=== PATIENT | female | born 1945 | race Caucasian/White ===

== ENCOUNTER → 2020-08-15 11:10 | Outpatient (BNVA) | payer MEDICARE, OTHER, SELFPAY | PROVIDERS: PCP Internal Medicine; Visit Provider Hospitalist | DX: J44.9 Chronic obstructive pulmonary disease, unspecified (principal); G47.33 Obstructive sleep apnea (adult) (pediatric); Z79.899 Other long term (current) drug therapy; Z99.89 Dependence on other enabling machines and devices; Z23 Encounter for immunization | CPT/HCPCS: 90471; 90732; 99212 ==

== ENCOUNTER → 2021-06-04 10:45 | Outpatient (BNVA) | payer MEDICARE, OTHER, SELFPAY | PROVIDERS: PCP Internal Medicine; Visit Provider Hospitalist | DX: J44.9 Chronic obstructive pulmonary disease, unspecified (principal); G47.33 Obstructive sleep apnea (adult) (pediatric); Z99.89 Dependence on other enabling machines and devices | CPT/HCPCS: 99212 ==

== ENCOUNTER → 2021-11-25 10:09 | Outpatient (BNVA) | payer MEDICARE, OTHER, SELFPAY | PROVIDERS: PCP Internal Medicine; Visit Provider Hospitalist | DX: Z01.811 Encounter for preprocedural respiratory examination (principal); J44.9 Chronic obstructive pulmonary disease, unspecified; G47.33 Obstructive sleep apnea (adult) (pediatric); Z79.899 Other long term (current) drug therapy; Z99.89 Dependence on other enabling machines and devices | CPT/HCPCS: 99212 ==

== ENCOUNTER → 2022-03-03 09:55 | Outpatient (BNVA) | payer MEDICARE, OTHER, SELFPAY | PROVIDERS: PCP Internal Medicine; Visit Provider Hospitalist | DX: J44.9 Chronic obstructive pulmonary disease, unspecified (principal); G47.33 Obstructive sleep apnea (adult) (pediatric); Z79.899 Other long term (current) drug therapy; Z99.89 Dependence on other enabling machines and devices | CPT/HCPCS: 99212 ==

== ENCOUNTER → 2022-09-02 09:46 | Outpatient (BNVA) | payer MEDICARE, OTHER, SELFPAY | PROVIDERS: PCP Internal Medicine; Visit Provider Hospitalist | DX: J44.9 Chronic obstructive pulmonary disease, unspecified (principal); G47.33 Obstructive sleep apnea (adult) (pediatric); Z79.899 Other long term (current) drug therapy; Z99.89 Dependence on other enabling machines and devices | CPT/HCPCS: 99212 ==

== ENCOUNTER 2023-04-29 12:48 | Outpatient (AMB) | payer MEDICARE, OTHER, SELFPAY ==
[2023-04-29 13:00] VITALS: BP 126/60; PULSE 50; O2SAT 99; BMI 18.3
--- NOTE | 2023-04-29 13:00 | MHC.OFFVIS ---
Intake Vital Signs 04/29/23 13:00 Height 5 ft 1 in Weight 97 lb BMI 18.3 BP 126/60 Blood Pressure Location Lt brachial Position Sitting Pulse 50 Pulse Source Pulse Oximeter Pulse Oximetry (%) 99 Oxygen Delivery Method Room Air Intake Visit Reasons: COPD [place]mer Bottom Maker Required: No Allergies celecoxib [From Celebrex] Allergy (Severe, Verified 04/29/23 13:03) Closed Throat Ativan Allergy (Severe, Uncoded 04/29/23 13:03) closed throat Bactrim Allergy (Severe, Uncoded 04/29/23 13:03) closed throat HCTZ Allergy (Severe, Uncoded 04/29/23 13:03) closed throat meloxicam Allergy (Severe, Uncoded 04/29/23 13:03) closed throat percodan Allergy (Severe, Uncoded 04/29/23 13:03) closed throat HPI HPI Comments History of Present Illness Details The patient is a 77-year-old woman with known history of obstructive sleep apnea. She does use the Isabelle view mask. She has been tolerating it very well. She has been using his CPAP more than 4 hours a night. The CPAP therapy has been effective in beneficial. In regards her respiratory status she continues to use her respiratory inhalers including Anoro. She also has a rescue inhaler that she still uses prior to exercise and as needed. She has not required any prednisone or any antibiotics at this time for any exacerbations of her breathing. She does have a history of pulmonary nodules. They had been followed till 2013 with the nodules were deemed stable. We personally reviewed the CT scan from 2013. 11/25/2021 the patient is here for a pulmonary follow-up visit. Since we last spoke the patient did get a new CPAP from her [employer] company, [employer]. I did not order this machine with the patient has been using it. She has had a hard time with it. His set up at CPAP at 10 cm. She did bring in the machine were able to downloaded. Her AHI is elevated while on it with a HF 12.5 events per hour. In addition to that she was only able to use it less than 2 hours because is been difficult to tolerate in comparison to her older machine. Therefore we did adjust the machine back to an APAP 8-14 cm and I did remove the comfort setting to exhale which was causing her to not synchronized with the PAP therapy. She was able to tolerated better at the end of the adjustments. However if she has any issues she can always call us and we can we evaluate and we adjusted accordingly. Right now she is doing well from a respiratory status in case she continues in the Anoro. Her last chest x-ray was back in May 2021 demonstrating just hyperinflation. She is scheduled to undergo a cataract surgery. At this point the patient is medically optimized and is able to undergo her surgery with anesthesia without any significant pulmonary risk. 09/02/2022 the patient is here for a pulmonary follow-up visit. Overall the patient is doing well. She did bring her CPAP machine in. Her AHI is better but is still in the upper 4s. Her mean pressure is still around 11-12 cm. Therefore I will go ahead and increase her minimum pressure further. We did tried in the flight communications officer she did tolerated. If she has any difficulties with that she can always call so we can have the DME company be adjusted. It seems like it is a good machine is working well for her. The mask is also good fit for her. From a respiratory status the patient is doing well. She continues use the Anoro. has not required her rescue inhaler. She was also have a chest x-ray but she did not have it. Her last x-ray was from May 2021 demonstrating hyperinflated lungs. Therefore I did remind her just to get an x-ray whenever she has the opportunity to do so. 04/29/2023 the patient is here for pulmonary follow-up visit. Overall the patient has been doing well. She continues to the Anoro inhaler without any significant issues. She has a rescue inhaler that she has not required. The patient has not had any recent exacerbations requiring prednisone either. Overall she has been doing well. Her last chest x-ray from 2020 demonstrate hyperinflation. She was postop a chest x-ray but she has not done as of yet. I did give her scripts that she can get 1 done soon elsewhere. In the meantime she does continue to use her CPAP. CPAP therapy continues to be affecting beneficial. She does use it for more than 4 hours a night. Although she has been having hard time at times which she wakes up in the office. Therefore I adjusted her pressure is to not go over 13 cm. Hopefully she will tolerate that in her AHI will stay below 5. Right now her AHI is close to 5.1. Also increased her minimum pressure in order to try to also improve her apneas at the lower pressures. [facility] Medical History (Updated 11/25/21 @ 12:52 by Aj Noland MD) COPD (chronic obstructive pulmonary disease) ED on CPAP Pre-op chest exam Social History (Updated 06/04/21 @ 11:11 by DASHA Villarreal) Patient Tobacco Use Status: Never used Tobacco Review of Systems Const Denies headache(s) and Denies night sweats ENT Denies headache(s), Reports hearing loss, Denies lip swelling, Denies sinus pressure and Denies tongue swelling Card Denies chest pain and Reports dyspnea on exertion Resp Reports cough and Reports dyspnea on exertion GI Denies abdominal pain Musc Denies no additional complaints Neuro Denies headache(s) Psych Denies no additional complaints and Reports anxiety Louis/Lymph Denies easy bleeding and Denies lymphadenopathy Aller/Immun Denies lip swelling and Denies tongue swelling Physical Exam Vital Signs: Last Vital Signs Pulse 50 04/29/23 13:00 BP 126/60 04/29/23 13:00 Pulse Ox 99 04/29/23 13:00 Oxygen Delivery Method Room Air 04/29/23 13:00 BMI result Body Mass Index 18.3 Const General: alert Eyes Pupils: Equal, round and reactive pupils present Neck Neck: Yes normal visual inspection, Yes full ROM and Yes no lymphadenopathy Chest Chest palpation & inspection: normal inspection of the chest Resp Auscultation: diminished lung sounds Cardio Rate: regular rate Rhythm: regular rhythm Heart sounds: S1 normal heart sound present and S2 normal heart sound present GI Palpation (GI): Soft to palpation and nontender Auscultation: normal bowel sounds General: Yes no CVA tenderness Back/Spine/Pelvis Back: no CVA tenderness Skin General skin exam: rashes and/or lesions noted Neuro Cranial nerves: Yes Equal, round and reactive pupils present Assessment & Plan Assessment & Plan (1) COPD (chronic obstructive pulmonary disease): Code(s): J44.9 - Chronic obstructive pulmonary disease, unspecified (2) ED on CPAP: Code(s): G47.33 - Obstructive sleep apnea (adult) (pediatric); Z99.89 - Dependence on other enabling machines and devices Plan: Change to CPAP. the patient will monitor for any worsening symptoms continue Anoro chest x-ray follow-up 6-8 months Plan Adjusted odilia APAP from 8-16 to 9-13 (NICKO) Mask F30 Continue Anoro Short-acting beta agonist as needed CXR F/U 8-12 months Orders: Orders XR chest 2V 04/29/23 J44.9 - Chronic obstructive pulmonary disease, unspecified Coding Level of Care Code Est Pt Level 4 (65702) Diagnoses COPD (chronic obstructive pulmonary disease) J44.9 ED on CPAP G47.33; Z99.89 Time Spent (min) 19
== END 2023-04-29 13:31 | disposition home or self-care (01) ==
PROVIDERS: PCP Internal Medicine; Visit Provider Hospitalist
DX: J44.9 Chronic obstructive pulmonary disease, unspecified (principal); G47.33 Obstructive sleep apnea (adult) (pediatric); Z99.89 Dependence on other enabling machines and devices
CPT/HCPCS: 99214

== ENCOUNTER → 2023-04-29 12:48 | Outpatient (BNVA) | payer MEDICARE, OTHER, SELFPAY | PROVIDERS: PCP Internal Medicine; Visit Provider Hospitalist | DX: J44.9 Chronic obstructive pulmonary disease, unspecified (principal); G47.33 Obstructive sleep apnea (adult) (pediatric); Z99.89 Dependence on other enabling machines and devices | CPT/HCPCS: 99212 ==

== ENCOUNTER 2023-12-31 10:48 | Outpatient (REF) | payer MEDICARE, OTHER, SELFPAY ==
--- NOTE | ~2023-12-31 | XR_ITS ---
EXAMINATION: XR CHEST CLINICAL INFORMATION: Chest pain. COMPARISON: None available. TECHNIQUE: 2 views of the chest were obtained. FINDINGS: The lungs are well-inflated. There is no gross pneumothorax. Heart size is normal. No pleural effusion. Moderate degenerative changes in the thoracic spine. Prominent diffuse bilateral linear central interstitial opacities of indeterminate chronicity. An 8 mm focal opacity overlying the heart may represent a pulmonary nodule, but could also represent prominent anterior lower left rib. XR/XR chest 2V IMPRESSION: 1. Prominent diffuse bilateral linear central interstitial opacities of indeterminate chronicity. 2. An 8 mm focal opacity overlying the heart may represent a pulmonary nodule, but could also represent prominent anterior lower left rib. Direct correlation with prior images is recommended and if prior images are provided, an addendum will be dictated. In the absence of prior images, CT scan should be considered for further evaluation.
--- NOTE | 2023-12-31 11:56 | ECG_ITS ---
Test Reason : copd Blood Pressure : / mmHG Vent. Rate : 054 BPM Atrial Rate : 054 BPM P-R Int : 150 ms QRS Dur : 074 ms QT Int : 442 ms P-R-T Axes : 055 002 041 degrees QTc Int : 419 ms Sinus bradycardia Otherwise normal ECG When compared with ECG of 14-JUL-2002 06:32, No significant change was found Referred By: Aj Noland Electronically Signed By:PREMA LAUGHLIN MD
== END 2023-12-31 10:49 | disposition home or self-care (01) ==
LOC: HO.XRAY 10:48
PROVIDERS: PCP Internal Medicine; Visit Provider Hospitalist
DX: J41.0 Simple chronic bronchitis (principal); R07.9 Chest pain, unspecified; G47.33 Obstructive sleep apnea (adult) (pediatric); Z99.89 Dependence on other enabling machines and devices
CPT/HCPCS: 71046; 93005; 99212

== ENCOUNTER 2023-12-31 10:48 | Outpatient (AMB) | payer MEDICARE, OTHER, SELFPAY ==
[2023-12-31 11:10] VITALS: PULSE 65; O2SAT 97; BMI 19.3
--- NOTE | 2023-12-31 11:10 | A.OFFVIS_ITS ---
Intake Vital Signs 12/31/23 11:10 Height 5 ft 1 in Weight 102 lb BMI 19.3 Pulse 65 Pulse Source Pulse Oximeter Pulse Oximetry (%) 97 Oxygen Delivery Method Room Air Intake Visit Reasons: COPD Cheese Packer Required: No Allergies celecoxib [From Celebrex] Allergy (Severe, Verified 12/31/23 11:11) Closed Throat Ativan Allergy (Severe, Uncoded 12/31/23 11:11) closed throat Bactrim Allergy (Severe, Uncoded 12/31/23 11:11) closed throat HCTZ Allergy (Severe, Uncoded 12/31/23 11:11) closed throat meloxicam Allergy (Severe, Uncoded 12/31/23 11:11) closed throat percodan Allergy (Severe, Uncoded 12/31/23 11:11) closed throat HPI HPI Comments History of Present Illness Details The patient is a 78-year-old woman with known history of obstructive sleep apnea. She does use the Isabelle view mask. She has been tolerating it very well. She has been using his CPAP more than 4 hours a night. The CPAP therapy has been effective in beneficial. In regards her respiratory status she continues to use her respiratory inhalers including Anoro. She also has a rescue inhaler that she still uses prior to exercise and as needed. She has not required any prednisone or any antibiotics at this time for any exacerbations of her breathing. She does have a history of pulmonary nodules. They had been followed till 2013 with the nodules were deemed stable. We personally reviewed the CT scan from 2013. 11/25/2021 the patient is here for a pulmonary follow-up visit. Since we last spoke the patient did get a new CPAP from her [employer] company, [employer]. I did not order this machine with the patient has been using it. She has had a hard time with it. His set up at CPAP at 10 cm. She did bring in the machine were able to downloaded. Her AHI is elevated while on it with a HF 12.5 events per hour. In addition to that she was only able to use it less than 2 hours because is been difficult to tolerate in comparison to her older machine. Therefore we did adjust the machine back to an APAP 8-14 cm and I did remove the comfort setting to exhale which was causing her to not synchronized with the PAP therapy. She was able to tolerated better at the end of the adjustments. However if she has any issues she can always call us and we can we evaluate and we adjusted accordingly. Right now she is doing well from a respiratory status in case she continues in the Anoro. Her last chest x-ray was back in May 2021 demonstrating just hyperinflation. She is scheduled to undergo a cataract surgery. At this point the patient is medically optimized and is able to undergo her surgery with anesthesia without any significant pulmonary risk. 09/02/2022 the patient is here for a pulmonary follow-up visit. Overall the patient is doing well. She did bring her CPAP machine in. Her AHI is better but is still in the upper 4s. Her mean pressure is still around 11-12 cm. Therefore I will go ahead and increase her minimum pressure further. We did tried in the medical office worker she did tolerated. If she has any difficulties with that she can always call so we can have the DME company be adjusted. It seems like it is a good machine is working well for her. The mask is also good fit for her. From a respiratory status the patient is doing well. She continues use the Anoro. has not required her rescue inhaler. She was also have a chest x-ray but she did not have it. Her last x-ray was from May 2021 demonstrating hyperinflated lungs. Therefore I did remind her just to get an x-ray whenever she has the opportunity to do so. 04/29/2023 the patient is here for pulmonary follow-up visit. Overall the patient has been doing well. She continues to the Anoro inhaler without any significant issues. She has a rescue inhaler that she has not required. The patient has not had any recent exacerbations requiring prednisone either. Overall she has been doing well. Her last chest x-ray from 2020 demonstrate hyperinflation. She was postop a chest x-ray but she has not done as of yet. I did give her scripts that she can get 1 done soon elsewhere. In the meantime she does continue to use her CPAP. CPAP therapy continues to be affecting beneficial. She does use it for more than 4 hours a night. Although she has been having hard time at times which she wakes up in the office. Therefore I adjusted her pressure is to not go over 13 cm. Hopefully she will tolerate that in her AHI will stay below 5. Right now her AHI is close to 5.1. Also increas ed her minimum pressure in order to try to also improve her apneas at the lower pressures. 12/31/2023 the patient is here for a pulmonary follow-up visit. Overall she has been doing okay from a respiratory status. Denies any shortness of breath or any significant cough. She has had to use her rescue inhaler a few times prior to walking primarily because of the cold air. She does take the Anoro daily. The patient has been describing some left-sided chest discomfort. At times is not necessarily associated with activity. Sometimes she reproducible sometimes is not. She has not had an EKG stress test. Will go ahead and request an EKG today. The patient should also have a chest x-ray. Her last chest x-ray was last year and did not have any acute disease. But based on the new symptoms we should readdress it. In addition to that if her EKG and chest x-ray are okay she should undergo a stress test. The patient also brought a CPAP. The CPAP therapy continues to be affecting beneficial. She does try to use it more than 4 hours a night. Unfortunately sometimes she takes it off not knowingly. Her average usage is around 5.9 hours which I did tolerance fine. Although her AHI continues be elevated close to 15. Therefore, I did switch her from CPAP to APAP 10-15. She has a ramp of 8. She will try that and return in 6 months we can re-evaluate her response to therapy. She also has been complaining of some epigastric discomfort. This has been on and off. She did see the GI doctor for. [place] to have some gastritis. [facility] Medical History (Updated 01/02/24 @ 22:35 by Aj Noland MD) Pre-op chest exam ED on CPAP COPD (chronic obstructive pulmonary disease) Social History (Updated 06/04/21 @ 11:11 by DASHA Villarreal) Patient Tobacco Use Status: Never used Tobacco Review of Systems Const Denies headache(s) and Denies night sweats ENT Denies headache(s), Reports hearing loss, Denies lip swelling, Denies sinus pre ssure and Denies tongue swelling Card Denies chest pain and Reports dyspnea on exertion Resp Reports cough and Reports dyspnea on exertion GI Denies abdominal pain Musc Denies no additional complaints Neuro Denies headache(s) Psych Denies no additional complaints Louis/Lymph Denies easy bleeding and Denies lymphadenopathy Aller/Immun Denies lip swelling and Denies tongue swelling Physical Exam Vital Signs: Last Vital Signs Pulse 65 12/31/23 11:10 Pulse Ox 97 12/31/23 11:10 Oxygen Delivery Method Room Air 12/31/23 11:10 BMI result Body Mass Index 19.3 Const General: alert Eyes Pupils: Equal, round and reactive pupils present Neck Neck: Yes normal visual inspection, Yes full ROM and Yes no lymphadenopathy Chest Chest palpation & inspection: normal inspection of the chest Resp Auscultation: diminished lung sounds Cardio Rate: regular rate Rhythm: regular rhythm Heart sounds: S1 normal heart sound present and S2 normal heart sound present GI Palpation (GI): Soft to palpation and nontender Auscultation: normal bowel sounds General: Yes no CVA tenderness Back/Spine/Pelvis Back: no CVA tenderness Skin General skin exam: rashes and/or lesions noted Neuro Cranial nerves: Yes Equal, round and reactive pupils present Assessment & Plan Assessment & Plan (1) COPD (chronic obstructive pulmonary disease): Code(s): J44.9 - Chronic obstructive pulmonary disease, unspecified Qualifiers: COPD type: chronic bronchitis Chronic bronchitis type: simple Qualified Code(s): J41.0 - Simple chronic bronchitis (2) ED on CPAP: Code(s): G47.33 - Obstructive sleep apnea (adult) (pediatric); Z99.89 - Dependence on other enabling machines and devices Plan: Change to CPAP. the patient will monitor for any worsening symptoms continue Anoro chest x-ray follow-up 6-8 months (3) Chest pain: Code(s): R07.9 - Chest pain, unspecified Qualifiers: Chest pain type: unspecified Qualified Code(s): R07.9 - Chest pain, unspecified Plan Adjusted ibreeze APAP from 8-16 to 9-15 (JL) Mask F30 Continue Anoro Short-acting beta agonist as needed CXR today EKG Stress ECHO start Pepcid F/U 4-6 months Orders: Orders XR chest 2V 12/31/23 R07.9 - Chest pain, unspecified ECG 12 lead EKG 12/31/23 J44.9 - Chronic obstructive pulmonary disease, unspecified, R07.9 - Chest pain, unspecified CA echo stress exercise Today Medications: New famotidine (Pepcid) 40 mg PO BEDTIME 30 days 30 tabs 3RF Coding Level of Care Code Tele Est Pt Level 4 (71666) Diagnoses Simple chronic bronchitis J41.0 COPD type: chronic bronchitis Chronic bronchitis type: simple ED on CPAP G47.33; Z99.89 Chest pain, unspecified type R07.9 Chest pain type: unspecified Time Spent (min) 18
== END 2023-12-31 11:42 | disposition home or self-care (01) ==
PROVIDERS: PCP Internal Medicine; Visit Provider Hospitalist
DX: J41.0 Simple chronic bronchitis (principal); G47.33 Obstructive sleep apnea (adult) (pediatric); Z99.89 Dependence on other enabling machines and devices; R07.9 Chest pain, unspecified
CPT/HCPCS: 99214

== ENCOUNTER → 2023-12-31 11:56 | Outpatient (BNV) | payer MEDICARE, OTHER, SELFPAY | PROVIDERS: PCP Internal Medicine; Visit Provider Internal Medicine Cardiovascular Disease | DX: R00.1 Bradycardia, unspecified (principal) | CPT/HCPCS: 93010 ==

== ENCOUNTER → 2024-01-13 10:27 | Outpatient (REF) | payer MEDICARE, OTHER, SELFPAY ==
--- NOTE | 2024-01-13 10:31 | CA_ITS ---
Acquisition Time: 2024-01-13 10:33:09 Total Exercise Time: 00:07:39 Test Indications: CP Medications: SEE H Protocol: ELICEO Max HR: 106 BPM 75% of Pred: 140 BPM Max BP: 142/074 mmHG Max Work Load: 6.9 METS Exercise stres test exercise 7 min 39 sec of Eliceo protocol (manual increases) achieving 67-70% MPHR, with mild SOB, no chest discomfort, with isolated PACs and PVCs short atrial runs, with normotensive response to exercise, with slow heart response, without EKG changes for ischemia. Echo images obtained by tech at rest and immediately post peak exercise. Definity contrast used. Test reviewed with Dr. Marcial. Referred By: Aj Noland Overread By: Melinda Vargas
== END ==
LOC: HO.CARD 10:27
PROVIDERS: PCP Internal Medicine; Visit Provider Hospitalist
DX: R07.9 Chest pain, unspecified (principal)
CPT/HCPCS: 93350; Q9957

== ENCOUNTER → 2024-01-13 10:31 | Outpatient (BNV) | payer MEDICARE, OTHER, SELFPAY | PROVIDERS: PCP Internal Medicine; Visit Provider Nurse Practitioner | DX: R06.02 Shortness of breath (principal); I49.1 Atrial premature depolarization; I49.3 Ventricular premature depolarization; R07.9 Chest pain, unspecified | CPT/HCPCS: 93016; 93018; 93350; 93352 ==

== ENCOUNTER 2024-02-25 14:23 | Outpatient (REF) | payer MEDICARE, OTHER, SELFPAY ==
--- NOTE | ~2024-02-25 | CT_ITS ---
EXAMINATION: CT CHEST WITHOUT CONTRAST CLINICAL INFORMATION: Abnormal chest radiograph. COMPARISON: Chest radiograph 12/31/2023: An 8 mm focal opacity overlying the heart may represent a pulmonary nodule, but could also represent prominent anterior lower left rib. TECHNIQUE: Multidetector volumetric CT imaging of the chest was done. Axial MIP volume rendering provided. Sagittal and coronal reformatted images were obtained. This CT examination was performed using dose optimization techniques as appropriate, variously including the following: *Automated exposure control *Adjustment of mA and/or kV according to patient size (this includes techniques or standardized protocols for targeted exams where dose is matched to indication/reason for exam; i.e. extremities or head) *Use of iterative reconstruction technique DLP: 73 mGy-cm FINDINGS: LUNGS: There is biapical pleural-parenchymal scarring present. Tree-in-bud opacities are seen in the right upper lobe (5:154-199). Multiple scattered pulmonary nodules are present throughout the lungs and tanner images of all have been saved. The largest is in 5 mm subpleural right lower lobe nodule (5:231). Atelectasis and traction bronchiectasis are present in both the right middle lobe and lingula. MEDIASTINUM: The mediastinum is normal. CORONARY ARTERY CALCIFICATION: None visualized on this study. PLEURA: There is no pleural effusion. No pleural mass or thickening. AXILLA: No lymphadenopathy. UPPER ABDOMEN: Unremarkable. OSSEOUS STRUCTURES: Mild degenerative changes are present in the spine. CT/CT chest wo IV con IMPRESSION: 1. Multiple pulmonary nodules are present, the largest measuring 5 mm. 2. Tree-in-bud opacities in the right upper lobe. 3. Atelectasis and traction bronchiectasis in the right middle lobe and lingula. Fleischner guidelines were followed.
== END 2024-02-25 14:24 | disposition home or self-care (01) ==
LOC: HO.CT 14:23
PROVIDERS: PCP Internal Medicine; Visit Provider Hospitalist
DX: R93.89 Abnormal findings on diagnostic imaging of other specified body structures (principal)
CPT/HCPCS: 71250

== ENCOUNTER 2024-06-27 09:45 | Outpatient (AMB) | payer MEDICARE, OTHER, SELFPAY ==
[2024-06-27 09:53] VITALS: BP 110/60; PULSE 78; O2SAT 97; BMI 19.8
--- NOTE | 2024-06-27 09:53 | MHC.OFFVIS ---
Vital Signs 06/27/24 09:53 Height 5 ft 1 in Weight 104 lb 11.513 oz BMI 19.8 BP 110/60 Blood Pressure Location Lt brachial Position Sitting Pulse 78 Pulse Source Pulse Oximeter Pulse Oximetry (%) 97 Oxygen Delivery Method Room Air Intake Visit Reasons: COPD Stave Log Cut Off Saw Operator Required: No Allergies celecoxib [From Celebrex] Allergy (Severe, Verified 06/27/24 09:56) Closed Throat Ativan Allergy (Severe, Uncoded 06/27/24 09:56) closed throat Bactrim Allergy (Severe, Uncoded 06/27/24 09:56) closed throat HCTZ Allergy (Severe, Uncoded 06/27/24 09:56) closed throat meloxicam Allergy (Severe, Uncoded 06/27/24 09:56) closed throat percodan Allergy (Severe, Uncoded 06/27/24 09:56) closed throat HPI Comments Details: The patient is a 78-year-old woman with known history of obstructive sleep apnea. She does use the Isabelle view mask. She has been tolerating it very well. She has been using his CPAP more than 4 hours a night. The CPAP therapy has been effective in beneficial. In regards her respiratory status she continues to use her respiratory inhalers including Anoro. She also has a rescue inhaler that she still uses prior to exercise and as needed. She has not required any prednisone or any antibiotics at this time for any exacerbations of her breathing. She does have a history of pulmonary nodules. They had been followed till 2013 with the nodules were deemed stable. We personally reviewed the CT scan from 2013. 11/25/2021 the patient is here for a pulmonary follow-up visit. Since we last spoke the patient did get a new CPAP from her [employer] company, [employer]. I did not order this machine with the patient has been using it. She has had a hard time with it. His set up at CPAP at 10 cm. She did bring in the machine were able to downloaded. Her AHI is elevated while on it with a HF 12.5 events per hour. In addition to that she was only able to use it less than 2 hours because is been difficult to tolerate in comparison to her older machine. Therefore we did adjust the machine back to an APAP 8-14 cm and I did remove the comfort setting to exhale which was causing her to not synchronized with the PAP therapy. She was able to tolerated better at the end of the adjustments. However if she has any issues she can always call us and we can we evaluate and we adjusted accordingly. Right now she is doing well from a respiratory status in case she continues in the Anoro. Her last chest x-ray was back in May 2021 demonstrating just hyperinflation. She is scheduled to undergo a cataract surgery. At this point the patient is medically optimized and is able to undergo her surgery with anesthesia without any significant pulmonary risk. 09/02/2022 the patient is here for a pulmonary follow-up visit. Overall the patient is doing well. She did bring her CPAP machine in. Her AHI is better but is still in the upper 4s. Her mean pressure is still around 11-12 cm. Therefore I will go ahead and increase her minimum pressure further. We did tried in the strike warfare/missile systems officer she did tolerated. If she has any difficulties with that she can always call so we can have the DME company be adjusted. It seems like it is a good machine is working well for her. The mask is also good fit for her. From a respiratory status the patient is doing well. She continues use the Anoro. has not required her rescue inhaler. She was also have a chest x-ray but she did not have it. Her last x-ray was from May 2021 demonstrating hyperinflated lungs. Therefore I did remind her just to get an x-ray whenever she has the opportunity to do so. 04/29/2023 the patient is here for pulmonary follow-up visit. Overall the patient has been doing well. She continues to the Anoro inhaler without any significant issues. She has a rescue inhaler that she has not required. The patient has not had any recent exacerbations requiring prednisone either. Overall she has been doing well. Her last chest x-ray from 2020 demonstrate hyperinflation. She was postop a chest x-ray but she has not done as of yet. I did give her scripts that she can get 1 done soon elsewhere. In the meantime she does continue to use her CPAP. CPAP therapy continues to be affecting beneficial. She does use it for more than 4 hours a night. Although she has been having hard time at times which she wakes up in the office. Therefore I adjusted her pressure is to not go over 13 cm. Hopefully she will tolerate that in her AHI will stay below 5. Right now her AHI is close to 5.1. Also increased her minimum pressure in order to try to also improve her apneas at the lower pressures. 12/31/2023 the patient is here for a pulmonary follow-up visit. Overall she has been doing okay from a respiratory status. Denies any shortness of breath or any significant cough. She has had to use her rescue inhaler a few times prior to walking primarily because of the cold air. She does take the Anoro daily. The patient has been describing some left-sided chest discomfort. At times is not necessarily associated with activity. Sometimes she reproducible sometimes is not. She has not had an EKG stress test. Will go ahead and request an EKG today. The patient should also have a chest x-ray. Her last chest x-ray was last year and did not have any acute disease. But based on the new symptoms we should readdress it. In addition to that if her EKG and chest x-ray are okay she should undergo a stress test. The patient also brought a CPAP. The CPAP therapy continues to be affecting beneficial. She does try to use it more than 4 hours a night. Unfortunately sometimes she takes it off not knowingly. Her average usage is around 5.9 hours which I did tolerance fine. Although her AHI continues be elevated close to 15. Therefore, I did switch her from CPAP to APAP 10-15. She has a ramp of 8. She will try that and return in 6 months we can re-evaluate her response to therapy. She also has been complaining of some epigastric discomfort. This has been on and off. She did see the GI doctor for. Avella to have some gastritis. 06/27/2024 the patient is here for a pulmonary follow-up visit. Overall the patient has been doing well. She was recently diagnosed with vitiligo she did not realize what vitiligo was not recently. She did see a rail car repairman. She is currently has ointments. Right now she is not taking any medications that can precipitate vitiligo from a pulmonary standpoint. The patient has been using her Anoro. That has been affecting beneficial. She does not need any additional respiratory therapies. She also continues to use her CPAP. Her AHI continues to be elevated. Although is better although she was at 15 before now is came down to around 7. I did increase her maximum pressure little bit. She does have a hard time with the CPAP at times. But she does tolerated well. In addition to that she had a CT scan of the chest back in 02/14/2024 which I personally reviewed demonstrating some tree-in-bud and pulmonary nodules. She will need a repeat CT scan in January of 2025. Will follow-up with her after that. Also to note she did have a cardiac stress echo which is reassuring. [facility] Medical History (Updated 01/02/24 @ 22:35 by Aj Noland MD) Pre-op chest exam ED on CPAP COPD (chronic obstructive pulmonary disease) Social History (Updated 06/04/21 @ 11:11 by DASHA Villarreal) Patient Tobacco Use Status: Never used Tobacco Review of Systems Const Denies headache(s) and Denies night sweats ENT Denies headache(s), Reports hearing loss, Denies lip swelling, Denies sinus pressure and Denies tongue swelling Card Denies chest pain and Reports dyspnea on exertion Resp Reports cough and Reports dyspnea on exertion GI Denies abdominal pain Musc Denies no additional complaints Neuro Denies headache(s) Psych Denies no additional complaints Louis/Lymph Denies easy bleeding and Denies lymphadenopathy Aller/Immun Denies lip swelling and Denies tongue swelling Physical Exam Vital Signs: Last Vital Signs Pulse 78 06/27/24 09:53 BP 110/60 06/27/24 09:53 Pulse Ox 97 06/27/24 09:53 Oxygen Delivery Method Room Air 06/27/24 09:53 BMI result Body Mass Index 19.8 Const General: alert Eyes Pupils: Equal, round and reactive pupils present Neck Neck: Yes normal visual inspection, Yes full ROM and Yes no lymphadenopathy Chest Chest palpation & inspection: normal inspection of the chest Resp Auscultation: diminished lung sounds Cardio Rate: regular rate Rhythm: regular rhythm Heart sounds: S1 normal heart sound present and S2 normal heart sound present GI Palpation (GI): Soft to palpation and nontender Auscultation: normal bowel sounds General: Yes no CVA tenderness Back/Spine/Pelvis Back: no CVA tenderness Skin General skin exam: rashes and/or lesions noted Neuro Cranial nerves: Yes Equal, round and reactive pupils present Assessment & Plan Assessment & Plan (1) COPD (chronic obstructive pulmonary disease): Code(s): J44.9 - Chronic obstructive pulmonary disease, unspecified Category: Medical Qualifiers: COPD type: chronic bronchitis Chronic bronchitis type: simple Qualified Code(s): J41.0 - Simple chronic bronchitis (2) ED on CPAP: Code(s): G47.33 - Obstructive sleep apnea (adult) (pediatric); Z99.89 - Dependence on other enabling machines and devices Category: Medical Plan: Change to CPAP. the patient will monitor for any worsening symptoms continue Anoro chest x-ray follow-up 6-8 months Plan Adjusted ibreeze APAP from 10-15 to 10-17 (NICKO) Mask F30 Continue Anoro Short-acting beta agonist as needed Pepcid F/U 4-6 months Coding Level of Care Code Est Pt Level 4 (17307) Diagnoses Simple chronic bronchitis J41.0 COPD type: chronic bronchitis Chronic bronchitis type: simple ED on CPAP G47.33; Z99.89 Time Spent (min) 17
== END 2024-06-27 10:24 | disposition home or self-care (01) ==
PROVIDERS: PCP Internal Medicine; Visit Provider Hospitalist
DX: J41.0 Simple chronic bronchitis (principal); G47.33 Obstructive sleep apnea (adult) (pediatric); Z99.89 Dependence on other enabling machines and devices
CPT/HCPCS: 99214

== ENCOUNTER → 2024-06-27 09:45 | Outpatient (BNVA) | payer MEDICARE, OTHER, SELFPAY | PROVIDERS: PCP Internal Medicine; Visit Provider Hospitalist | DX: J41.0 Simple chronic bronchitis (principal); G47.33 Obstructive sleep apnea (adult) (pediatric); Z99.89 Dependence on other enabling machines and devices | CPT/HCPCS: 99212 ==

== ENCOUNTER 2025-03-13 09:21 | Outpatient (AMB) | payer MEDICARE, OTHER, SELFPAY ==
[2025-03-13 09:23] VITALS: BP 120/60; PULSE 61; O2SAT 98; BMI 19.6
--- NOTE | 2025-03-13 09:23 | A.OFFVIS_ITS ---
Vital Signs 03/13/25 09:23 Height 5 ft 1 in Weight 103 lb 9.876 oz BMI 19.6 BP 120/60 Blood Pressure Location Lt brachial Position Sitting Pulse 61 Pulse Source Pulse Oximeter Pulse Oximetry (%) 98 Oxygen Delivery Method Room Air Intake Visit Reasons: COPD Vehicle Window Tinter Required: No Accompanied by: Self / Same As Patient Allergies celecoxib [From Celebrex] Allergy (Severe, Verified 03/13/25 09:26) Closed Throat Ativan Allergy (Severe, Uncoded 06/27/24 09:56) closed throat Bactrim Allergy (Severe, Uncoded 06/27/24 09:56) closed throat HCTZ Allergy (Severe, Uncoded 06/27/24 09:56) closed throat meloxicam Allergy (Severe, Uncoded 06/27/24 09:56) closed throat percodan Allergy (Severe, Uncoded 06/27/24 09:56) closed throat HPI Comments Details: The patient is a 79 year-old woman with known history of obstructive sleep apnea. She does use the Isabelle view mask. She has been tolerating it very well. She has been using his CPAP more than 4 hours a night. The CPAP therapy has been effective in beneficial. In regards her respiratory status she continues to use her respiratory inhalers including Anoro. She also has a rescue inhaler that she still uses prior to exercise and as needed. She has not required any prednisone or any antibiotics at this time for any exacerbations of her breathing. She does have a history of pulmonary nodules. They had been followed till 2013 with the nodules were deemed stable. We personally reviewed the CT scan from 2013. 11/25/2021 the patient is here for a pulmonary follow-up visit. Since we last spoke the patient did get a new CPAP from her [employer], [email or web address]. I did not order this machine with the patient has been using it. She has had a hard time with it. His set up at CPAP at 10 cm. She did bring in the machine were able to downloaded. Her AHI is elevated while on it with a HF 12.5 events per hour. In addition to that she was only able to use it less than 2 hours because is been difficult to tolerate in comparison to her older machine. Therefore we did adjust the machine back to an APAP 8-14 cm and I did remove the comfort setting to exhale which was causing her to not synchronized with the PAP therapy. She was able to tolerated better at the end of the adjustments. However if she has any issues she can always call us and we can we evaluate and we adjusted accordingly. Right now she is doing well from a respiratory status in case she continues in the Anoro. Her last chest x-ray was back in May 2021 demonstrating just hyperinflation. She is scheduled to undergo a cataract surgery. At this point the patient is medically optimized and is able to undergo her surgery with anesthesia without any significant pulmonary risk. 09/02/2022 the patient is here for a pulmonary follow-up visit. Overall the patient is doing well. She did bring her CPAP machine in. Her AHI is better but is still in the upper 4s. Her mean pressure is still around 11-12 cm. Therefore I will go ahead and increase her minimum pressure further. We did tried in the aoc director combat operations officer she did tolerated. If she has any difficulties with that she can always call so we can have the DME company be adjusted. It seems like it is a good machine is working well for her. The mask is also good fit for her. From a respiratory status the patient is doing well. She continues use the Anoro. has not required her rescue inhaler. She was also have a chest x-ray but she did not have it. Her last x-ray was from May 2021 demonstrating hyperinflated lungs. Therefore I did remind her just to get an x- ray whenever she has the opportunity to do so. 04/29/2023 the patient is here for pulmonary follow-up visit. Overall the patient has been doing well. She continues to the Anoro inhaler without any significant issues. She has a rescue inhaler that she has not required. The patient has no t had any recent exacerbations requiring prednisone either. Overall she has been doing well. Her last chest x-ray from 2020 demonstrate hyperinflation. She was postop a chest x-ray but she has not done as of yet. I did give her scripts that she can get 1 done soon elsewhere. In the meantime she does continue to use her CPAP. CPAP therapy continues to be affecting beneficial. She does use it for more than 4 hours a night. Although she has been having hard time at times which she wakes up in the office. Therefore I adjusted her pressure is to not go over 13 cm. Hopefully she will tolerate that in her AHI will stay below 5. Right now her AHI is close to 5.1. Also increased her minimum pressure in order to try to also improve her apneas at the lower pressures. 12/31/2023 the patient is here for a pulmonary follow-up visit. Overall she has been doing okay from a respiratory status. Denies any shortness of breath or any significant cough. She has had to use her rescue inhaler a few times prior to walking primarily because of the cold air. She does take the Anoro daily. The patient has been describing some left-sided chest discomfort. At times is not necessarily associated with activity. Sometimes she reproducible sometimes is not. She has not had an EKG stress test. Will go ahead and request an EKG today. The patient should also have a chest x-ray. Her last chest x-ray was last year and did not have any acute disease. But based on the new symptoms we should readdress it. In addition to that if her EKG and chest x-ray are okay she should undergo a stress test. The patient also brought a CPAP. The CPAP therapy continues to be affecting beneficial. She does try to use it more than 4 hours a night. Unfortunately sometimes she takes it off not knowingly. Her average usage is around 5.9 hours which I did tolerance fine. Although her AHI continues be elevated close to 15. Therefore, I did switch her from CPAP to APAP 10-15. She has a ramp of 8. She will try that and return in 6 months we can re-evaluate her response to therapy. She also has been complaining of some epigastric discomfort. This has been on and off. She did see the GI doctor for. Meigs to have some gastritis. 06/27/2024 the patient is here for a pulmonary follow-up visit. Overall the patient has been doing well. She was recently diagnosed with vitiligo she did not realize what vitiligo was not recently. She did see a spindle sander. She is currently has ointments. Right now she is not taking any medications that can precipitate vitiligo from a pulmonary standpoint. The patient has been using her Anoro. That has been affecting beneficial. She does not need any additional respiratory therapies. She also continues to use her CPAP. Her AHI continues to be elevated. Although is better although she was at 15 before now is came down to around 7. I did increase her maximum pressure little bit. She does have a hard time with the CPAP at times. But she does tolerated well. In addition to that she had a CT scan of the chest back in 02/14/2024 which I personally reviewed demonstrating some tree-in-bud and pulmonary nodules. She will need a repeat CT scan in January of 2025. Will follow-up with her after that. Also to note she did have a cardiac stress echo which is reassuring. 03/13/2025 the patient is here for a pulmonary follow-up visit. Overall she is doing okay. She has been struggling over the CPAP though. She has been having hard time tolerating the pressures. She usually puts it on but then she takes it off quickly after that. She does not realize she is taking it off. Current settings are APAP 10-16. She has a ramp of 6. She is also complaining of abdominal discomfort and fullness. Significant bloating. Indeed it could be from the elevated PAP pressures. Although even after stopped using the PAP she is still developing the bloating sensation. She does have an MRI of the abdomen scheduled for next week. She has had a full workup in the meantime. Will go ahead and decrease the pressures to APAP 6-12. Typically her average pressure using the PAP is around 11.8 so 12 would be just reasonable. If she feels like it is too low she can always call but I do not think it is going to be the case. The patient can also get a new PAP machine in the near future. Specially if it is more than 5 years old in order for us to be able to get downloads and be able to access the machine online to be able to adjusted accordingly. Will talk about that further when during her next visit in a year. If she has any issues prior to that with the pressures or any other concerning issues she will call for an earlier assessment. Respiratory prieto the patient is doing well, using her inhalers. [facility] Medical History (Updated 03/13/25 @ 10:10 by Aj Noland MD) Pre-op chest exam ED on CPAP COPD (chronic obstructive pulmonary disease) Social History Patient Tobacco Use Status: Never used Tobacco Review of Systems Const Denies headache(s) and Denies night sweats ENT Denies headache(s), Reports hearing loss, Denies lip swelling, Denies sinus pressure and Denies tongue swelling Card Denies chest pain and Reports dyspnea on exertion Resp Reports cough and Reports dyspnea on exertion GI Reports abdominal pain, Reports bloating and Reports early satiety Musc Denies no additional complaints Neuro Denies headache(s) Psych Denies no additional complaints Louis/Lymph Denies easy bleeding and Denies lymphadenopathy Aller/Immun Denies lip swelling and Denies tongue swelling Physical Exam Vital Signs: Last Vital Signs Pulse 61 03/13/25 09:23 BP 120/60 03/13/25 09:23 Pulse Ox 98 03/13/25 09:23 Oxygen Delivery Method Room Air 03/13/25 09:23 BMI result Body Mass Index 19.6 Const General: alert Eyes Pupils: Equal, round and reactive pupils present Neck Neck: Yes normal visual inspection, Yes full ROM and Yes no lymphadenopathy Chest Chest palpation & inspection: normal inspection of the chest Resp Auscultation: diminished lung sounds Cardio Rate: regular rate Rhythm: regular rhythm Heart sounds: S1 normal heart sound present and S2 normal heart sound present GI Palpation (GI): Soft to palpation and nontender Auscultation: normal bowel sounds General: Yes no CVA tenderness Back/Spine/Pelvis Back: no CVA tenderness Skin General skin exam: rashes and/or lesions noted Neuro Cranial nerves: Yes Equal, round and reactive pupils present Assessment & Plan Assessment & Plan (1) COPD (chronic obstructive pulmonary disease): Code(s): J44.9 - Chronic obstructive pulmonary disease, unspecified Category: Medical Qualifiers: COPD type: chronic bronchitis Chronic bronchitis type: simple Qualified Code(s): J41.0 - Simple chronic bronchitis (2) ED on CPAP: Code(s): G47.33 - Obstructive sleep apnea (adult) (pediatric); Z99.89 - Dependence on other enabling machines and devices Category: Medical Plan: Change to CPAP. the patient will monitor for any worsening symptoms continue Anoro chest x-ray follow-up 6-8 months (3) Abdominal bloating: Comment: Unlikely from the PAP therapy, but will decrease the pressures to see if it help Code(s): R14.0 - Abdominal distension (gaseous) Category: Medical Plan Adjusted ibreeze APAP from 07-11 to 07-13-->6-12 (JL) Mask F30 Continue Anoro Short-acting beta agonist as needed Awaiting Abd MRI F/U 10-12 months Coding Level of Care Code Est Pt Level 4 (21111) Diagnoses Simple chronic bronchitis J41.0 COPD type: chronic bronchitis Chronic bronchitis type: simple ED on CPAP G47.33; Z99.89 Abdominal bloating R14.0 Time Spent (min) 17
--- OUTSIDE RECORDS SUMMARY | 2025-03-13 10:03 | XMS_ITS | Data Portability ---
Author Organization [place] [facility] [place] Address [address] [place] [address] Care Team Providers Care Campground Attendant Name Role Phone JOSHUA MARKHAM Referring Provider JOSHUA MARKHAM Primary Care Provider Assessment Encounter Date Assessment Date Assessment LastModified by Organization Details LastModified Time 05/26/2023 05/26/2023 The patient's history and physical exam are consistent with right impingement syndrome. The space between the undersurface of the acromion and above the humeral head is the impingement interval. Any condition that narrows this interval causes impingement, including the presence of subacromial bone spurs. There are 3 stages of impingement- stages I, II, and III. Stage I impingement occurs in young patients and is likely a result of overuse. Stage II impingement occurs in slightly older patients and likely results in tendonitis or partial tearing of the rotator cuff. Stage III impingement generally occurs in patients older than 50 and is associated with rotator cuff tearing. Conservative treatment options include avoiding aggravating activities, NSAIDS, home exercises or physical therapy, cortisone injections, or further testing. Operative interventions are reserved for patients who fail conservative treatment. After discussion, she was eager to proceed with a trial of physical therapy. If symptoms not improved, subacromial injection could be considered. All questions answered to her satisfaction. [email or web address] Not available 06/05/2023 14:27:50 07/15/2023 07/15/2023 I have reviewed her history and physical exam and x-rays and is my impression she has resolving right shoulder tendinitis she has good motion and strength and is reasonably comfortable. I would not suggest any other treatment except continuing with her physical therapy and weaning to a home program and we will see her back again on an as-needed basis [email or web address] Not available 07/15/2023 11:16:30 Plan of Treatment Reminders Order Date Submit Date Provider Last Modified By Organization Details Last Modified Time Details Appointments None recorded. Lab None recorded. Referral physical therapist referral 2022 023 [email or web address] Not available 10:39:20 Procedures None recorded. Surgeries None recorded. Imaging XR, shoulder, 2 or more view 2022 023 [email or web address] [place] [facility], [address], [place], [address], 16:55:05 Medication Orders None recorded. Patient TargetsNo targets recorded. Patient Instructions Encounter Date Encounter Id Patient Instructions Last Modified By Organization Details Last Modified Time 05/26/2023 [id number] views of the right shoulder were obtained in the [place] office including [facility] [place] and outlet. X-rays demonstrated some decreased bone mineralization. There is decreased subacromial space. Minor degenerative changes to the AC joint. No evidence of acute injury or fracture. [email or web address] Not available 06/05/2023 14:27:33 Reason for Referral Physical Therapist Referral for Impingement syndrome of right shoulder region Referring Physician: Delmar Elias, Orthopedic Surgery, Encounter Date: 05/26/2023 Problems Name Problem SNOMED Code Status Onset Date Resolution Date Notes Provider Name and Address Organization Details Recorded Time Impingement syndrome of right shoulder region [id number] 02 Active 2022 DELMAR ELIAS PA-C [address], [facility] [place], [address], [place] [facility] [place], 10:30:13 Problem Notes None recorded. Medical Equipment None Reported. Allergies No known drug allergies Medications Name Sig Start Date Stop Date Status Note LastModified by Organization Details LastModified Time carisoprodo l 350 mg tablet TAKE 1 TABLET BY MOUTH TWICE A DAY NEEDED active Not Available Not Available No t Available prednisone 10 mg tablet 3 TABLET BY MOUTH DAILY,X5 DAYS 07/15 completed Not Available Not Available Not Available doxycycline hyclate 100 mg capsule TAKE 1 CAPSULE BY MOUTH 2 TIMES A DAY FOR 10 DAYS 07/15 completed Not Available Not Available Not Available trazodone 50 mg tablet TAKE 2 TABLETS BY MOUTH AT BEDTIME 07/15 completed Not Available Not Available Not Available cefpodoxime 200 mg tablet TAKE 1 TABLET BY MOUTH TWICE A DAY 07/15 completed Not Available Not Available Not Available sumatriptan 100 mg tablet TAKE 1 TABLET BY MOUTH DAILY NEEDED MIGRAINE 07/15 completed Not Available Not Available Not Available cephalexin 250 mg capsule TAKE 1 CAPSULE BY MOUTH EVERY DAY 07/15 completed Not Available Not Available Not Available clonazepam 0.5 mg tablet TAKE 1 TABLET BY MOUTH DAILY NEEDED active Not Available Not Available No t Available meclizine 12.5 mg tablet TAKE 1 TABLET BY MOUTH THREE TIMES A DAY NEEDED FOR DIZZINESS active Not Available Not Available No t Available amlodipine 2.5 mg tablet TAKE 1 TABLET BY MOUTH EVERY DAY active Not Available Not Available No t Available ciprofloxac in 250 mg tablet TAKE 1 TABLET BY MOUTH EVERY 12 HOURS FOR 3 DAYS 07/15 completed Not Available Not Available Not Available amlodipine 5 mg tablet TAKE 1 TABLET BY MOUTH EVERY DAY active Not Available Not Available No t Available trimethopri m 100 mg tablet TAKE 1 TABLET BY MOUTH EVERYDAY AT BEDTIME active Not Available Not Available No t Available valacyclovi r 500 mg tablet TAKE 1 TABLET BY MOUTH EVERY 12 HOURS FOR 3 DAYS 07/15 completed Not Available Not Available Not Available hydrocortis one 2.5 % topical cream with perineal applicator APPLY 1 A SMALL AMOUNT VIA APPLICATO R TWICE A DAY DIRECTED 07/15 completed Not Available Not Available Not Available benzonatate 100 mg capsule TAKE 1 CAPSULE BY MOUTH 3 TIMES A DAY NEEDED FOR COUGH 07/15 completed Not Available Not Available Not Available losartan 25 mg tablet TAKE 1 TABLET BY MOUTH EVERY DAY active Not Available Not Available No t Available metoprolol tartrate 50 mg tablet TAKE 1 TABLET BY MOUTH TWICE A DAY active Not Available Not Available No t Available docusate sodium 100 mg capsule TAKE 1 CAPSULE BY MOUTH DAILY NEEDED FOR CONSTIPAT ION active Not Available Not Available No t Available omeprazole 20 mg capsule,del ayed release TAKE 1 CAPSULE BY MOUTH EVERY DAY active Not Available Not Available No t Available hydrocortis one 2.5 % topical cream APPLY TO THE RECTUM/HE MORRHOIDS SPARINGLY . USE TWICE DAILY OR LESS - DO NOT EXCEED TWICE DAILY. 07/15 completed Not Available Not Available Not Available pravastatin 20 mg tablet TAKE 1 TABLET BY MOUTH EVERY DAY active Not Available Not Available No t Available estradiol 0.01% (0.1 mg/gram) vaginal cream INSERT 1 GRAM PER VAGINA AND URETHRA TWICE WEEKLY active Not Available Not Available No t Available albuterol sulfate HFA 90 mcg/actuati on aerosol inhaler 2 PUFFS INHALATIO N EVERY 6 HOURS,X30 DAYS NEEDED WHEEZING/ SHORTNESS OF BREATH active Not Available Not Available No t Available oxycodone 5 mg tablet TAKE 1 TABLET BY MOUTH EVERY 4 HOURS NEEDED FOR SEVERE PAIN SCALE 7-10 PAIN active Not Available Not Available No t Available neomycin 3.5 mg/g-polymy torsten B 10,000 unit/g-dexa meth 0.1 % eye oint APPLY DIRECTED TO AFFECTED LIDS AT BEDTIME 07/15 completed Not Available Not Available Not Available azithromyci n 500 mg tablet TAKE 1 TABLET BY MOUTH EVERY DAY 07/15 completed Not Available Not Available Not Available Restasis 0.05 % eye drops in a dropperette INSTILL 1 DROP INTO BOTH EYES TWICE A DAY active Not Available Not Available No t Available nitrofurant oin monohydrate /macrocryst als 100 mg capsule TAKE 1 CAPSULE BY MOUTH TWICE A DAY 07/15 completed Not Available Not Available Not Available lactulose 10 gram/15 mL oral solution TAKE 15 ML BY MOUTH ONCE A DAY active Not Available Not Available No t Available Combigan 0.2 %-0.5 % eye drops INSTILL 1 DROP INTO BOTH EYES TWICE A DAY active Not Available Not Available No t Available Anoro Ellipta 62.5 mcg-25 mcg/actuati on powder for inhalation INHALE 1 PUFF DAILY active Not Available Not Available No t Available QuickVue At-Home COVID-19 Test kit USE DIRECTED 07/15 completed Not Available Not Available Not Available Vitals Date Recorded Body height Body mass index (BMI) Body weight Provider Name and Address Organization Details Last Updated DateTime 07/15/2023 157.48 cm 17.7 kg/m2 [address] [place] [facility] [place] 07/15/2023 11:04:06 Social History None recorded. Functional Status Question Answer Note LastModified by Organizat ion Details LastModified Time Do you use any illicit or recreational drugs? No [email or web address] Information not available 07/15/2023 Do you or have you ever used any other forms of tobacco or nicotine? No [email or web address] Information not available 07/15/2023 What is your level of alcohol consumption? None [email or web address] Information not available 07/15/2023 Mental Status None recorded. Family History Relationship Description Onset Age of this Age Resolved Age Notes LastModified by Organization Details LastModified Time Mother History of hypertension [email or web address] Not available 11:06:08 Mother Hyperlipidem ia [email or web address] Not available 2022 11:06:22 Mother Heart disease [email or web address] Not available 2022 11:06:33 Sister History of hypertension [email or web address] Not available 11:06:08 Sister Hyperlipidem ia [email or web address] Not available 2022 11:06:23 Medical History Condition Response Hypertension Y COPD Y Osteoporosis Y Gynecological HistoryNo gynecological history recorded. Obstetrics History GPAL:G 0 P 0 0 0 0 Past Encounters Encounter ID Performer Location Encounter Start Date Encounter Closed Date Diagnosis/Indication Diagnosis SNOMED-CT Code Diagnosis ICD10 Code Diagnosis Note [id number] DELMAR ELIAS PA-C [place] [phone] 05/26/2023 09:51:45 05/26/2023 10:28:35 Pain of right shoulder joint [id number] 6717668 M25.511 Impingemen t syndrome of right shoulder region 9217379999 60812 M75.41 [id number] Jhon Allison MD [address] [address] 07/15/2023 10:47:24 07/15/2023 11:13:27 Impingement syndrome of right shoulder region [id number] 92470 M75.41 Health Concerns Section Related Observation LastModified by Organization Detai ls LastModified Time None Recorded Concern Status LastModified by Organization Details LastModified Time None Recorded Advance Directives Directive None Recorded Payers Insurance Date Sequence Insurance Name Policy Number Policy Woods Covered Member ID Woods Member ID Guarantor Name 07/15/2023 1 MEDICARE B-[place]: [employer] Jocelyn Mack [id number] 1 Jocelyn Mack 07/12/2023 2 COUNT INCLUDES THE [facility] PLAN F (MEDICARE SUPPLEMENT) [id number] 2 Jocelyn Mack [id number] Jocelyn Mack 07/12/2023 MEDICARE B-[place]: NGS Jocelyn Mack [id number] Jocelyn Mack 06/08/2023 MEDICARE B-[place]: NGS Jocelyn Mack [id number] Jocelyn Mack Notes Date Note Type Note Provider Name and Address Organization Details Recorded Time 05/26/2023 text/html Patient is a 77-year-old female who presents today with right shoulder pain. She denies any injury or trauma that caused the onset of her symptoms. Symptoms have been present for 2-1/2 weeks. She feels like her shoulder gets stuck at times. Symptoms increase with lifting. She does note a click in her shoulder with activity. No prior injury or trauma. No numbness or tingling. No neck pain. DELMAR ELIAS PA-C [address], [place], [address], [place] [facility] [place] 06/05/2023 14:28:13 07/15/2023 text/html [email or web address] returns for follow-up of her right shoulder. She is feeling much better with physical therapy she has much less pain and much better motion Jhon Allison MD [address], [place], [address], [place] [facility] [place] 07/15/2023 11:16:41 OBGyn Episode No OBEpisode recorded.
== END 2025-03-13 09:49 | disposition home or self-care (01) ==
LOC: HO.HPS 09:22
PROVIDERS: PCP Internal Medicine; Visit Provider Hospitalist
DX: J41.0 Simple chronic bronchitis (principal); G47.33 Obstructive sleep apnea (adult) (pediatric); Z99.89 Dependence on other enabling machines and devices; R14.0 Abdominal distension (gaseous)
CPT/HCPCS: 99214

== ENCOUNTER → 2025-03-13 09:21 | Outpatient (BNVA) | payer MEDICARE, OTHER, SELFPAY | PROVIDERS: PCP Internal Medicine; Visit Provider Hospitalist | DX: J41.0 Simple chronic bronchitis (principal); G47.33 Obstructive sleep apnea (adult) (pediatric); R14.0 Abdominal distension (gaseous); Z99.89 Dependence on other enabling machines and devices | CPT/HCPCS: 99212 ==